=== PATIENT | female | born 1980 | race Caucasian/White ===

== ENCOUNTER 2016-11-18 14:32 | Emergency (ER) | payer OTHER ==
[~2016-11-18] VITALS: Ht 160 cm; Wt 57.6 kg
[2016-11-18 15:15] VITALS: BP 116/73
--- NOTE | 2016-11-18 19:10 | NUR ---
PATIENT LEFT WITHOUT BEING SEEN BY DR. RODRIGUEZ. NO FURTHER CARE PROVIDED FOR PATIENT.
== END 2016-11-18 19:10 | disposition left against medical advice (07) ==
LOC: MED 14:32
DX: R51 Headache (principal); Z53.21 Procedure and treatment not carried out due to patient leaving prior to being seen by health care provider